=== PATIENT | female | born 1960 | race Two or more races ===

== ENCOUNTER 2023-05-13 08:26 | Inpatient (IN) | payer OTHER ==
[~2023-05-13] VITALS: Ht 167.6 cm; Wt 128.8 kg
[2023-05-13] MEDS ORDERED: KAPVAY0.1 MG (09:10)
[2023-05-13] MEDS ORDERED: ZESTRIL20 MG (09:10)
[2023-05-13] MEDS ORDERED: HYDROCHLOROTH12.5 MG PO (09:10)
[2023-05-13 09:58] LABS: HEMATOCRIT 40.9 % (36.0-45.00); HEMOGLOBIN 13.4 g/dL (12.0-15.00); MEAN CELL VOLUME 82.5 fL (80.00-100.00); MEAN CORPUSCULAR HGB CONC 32.7 g/dl (32.0-36.0); PLATELET COUNT 208 K/uL (150-450); RED BLOOD COUNT 4.95 M/uL (4.00-6.00); RED CELL DISTRIBUTION WIDTH 14.8 % (11.5-14.5)
[2023-05-13 10:21] LABS: CALCIUM 9.8 mg/dL (8.5-10.1); CREATININE SERUM 1.13 mg/dL (0.55-1.02); GFR 48.79; POTASSIUM 4.2 mEq/L (3.5-5.1)
[2023-05-13] MEDS ORDERED: ONDANSETRON HCL 4 MG in DEXTROSE 5 % IN WATER 50 ML IV SCH (11:57)
[2023-05-13] MEDS ORDERED: METRONIDAZOLE/SODIUM CHLORIDE 100 ML IV SCH (11:57)
[2023-05-13] MEDS ORDERED: CIPROFLOXACIN IN 5 % DEXTROSE 200 ML IV SCH (11:57)
[2023-05-13] MEDS ORDERED: FAMOTIDINE/PF 20 MG/2 ML VIAL IV SCH (11:57)
[2023-05-13] MEDS ORDERED: 0.9 % SODIUM CHLORIDE 1,000 ML IV SCH (12:00)
[2023-05-13] MEDS ORDERED: ENALAPRILAT DIHYDRATE 1.25 MG/ML VIAL IV PRN (12:15)
[2023-05-13 12:21] LABS: URINE APPEARANCE Cloudy; URINE BILIRRUBIN Small (NEGATIVE); URINE BLOOD Negative; URINE COLOR Dark Yellow; URINE GLUCOSE Negative (NEGATIVE); URINE LEUKOCYTE Small; URINE NITRATE Negative; URINE PROTEIN 30 (NEGATIVE)
[2023-05-13 12:22] LABS: URINE BACTERIA 5673.7 uL (0.0-1933); URINE EPITHELIAL CELLS 94.1 uL (0.0-38.8); URINE RBC 18.5 uL (0.0-20.8)
[2023-05-13] MEDS ORDERED: MORPHINE SULFATE 2 MG/ML CARTRIDGE IV SCH (13:00)
[2023-05-13 16:25] LABS: INR 0.98; PARTIAL THROMBOPLASTIN TIME 29.6 SECONDS (22.0-34.0); PROTHROMBIN TIME 10.3 SECONDS (9.0-11.5)
[2023-05-16] MEDS ORDERED: LISINOPRIL 20 MG TABLET PO SCH (09:01)
[2023-05-16] MEDS ORDERED: AMLODIPINE BESYLATE 2.5 MG TABLET PO SCH (09:02)
== END 2023-05-16 12:50 | disposition home or self-care (01) | DRG 392 ==
LOC: ER 08:26 → SEC-K 11:58 → MEDI 11:58 → MEDJ 18:03 → MEDI 18:04
PROVIDERS: General Practice; ADMIT Internal Medicine; ATTEND Internal Medicine
PROC: BW21ZZZ Computerized Tomography (CT Scan) of Abdomen and Pelvis (ICD-10-PCS; principal; 2023-05-13)
DX: K57.32 Diverticulitis of large intestine without perforation or abscess without bleeding (principal); E86.0 Dehydration; I10 Essential (primary) hypertension